=== PATIENT | female | born 1950 | race Caucasian/White ===

== ENCOUNTER 2017-08-09 12:43 | Day surgery (SDC) | payer MEDICARE, OTHER ==
[~2017-08-09] VITALS: Ht 162.6 cm; Wt 68.0 kg
--- NOTE | 2017-08-09 15:04 | NUR ---
08/09/17 1504 Ilana Gil 1444 PT ARRIVED IN PACU SLEEPY WITH NO C/O'S. ABD SOFT. 1500 FLU VACCINE GIVEN IN R ARM.
--- NOTE | 2017-08-10 09:12 | OR ---
[facility] [address] [place], [place] [address] Signed DATE OF OPERATION: 08/09/2017 SURGEON: Miguel Angel Sotelo MD PREOPERATIVE DIAGNOSIS: Colon screening, prior colonoscopy normal. POSTOPERATIVE DIAGNOSES: 1. Sigmoid diverticulosis. 2. Hypertrophied anal papilla x1. PROCEDURE: Total colonoscopy to cecum. ANESTHESIA: Intravenous sedation; fentanyl 100 mcg, Versed 5 mg. INDICATION: A 67-year-old white woman, who is a patient of Dr. Arias. She has undergone colon screen in the past, which was said to be normal. She is symptom-free at this time. She is admitted to undergo colonoscopy and understand the risks of bleeding, infection, and perforation. FINDINGS: The prep was excellent. Complete colonoscopy was undertaken to the cecum without question. There were diverticula of the sigmoid, but no sign of polyps. There was hypertrophied anal papilla x1. DESCRIPTION OF PROCEDURE: The patient was brought to the endoscopy suite and placed in lateral decubitus position, given intravenous sedation to the point of slurred speech and nystagmus. Digital rectal examination was normal. A firm nodule in the anal canal was noted and later confirmed to be a hypertrophied anal papilla. An Olympus video colonoscope was passed in the rectum and manipulated throughout the colon ultimately intubating the cecum itself. The ileocecal valve and appendiceal orifice were normal. The scope was withdrawn from that point and examination undertaken throughout showed no sign of polyps, but did show diverticular change of the sigmoid and left colon. Retroflexed view of the rectum confirmed hypertrophied anal papilla. The scope was straightened, withdrawn, and removed. The patient was taken to recovery in good condition. Electronically Signed By: MIGUEL ANGEL SOTELO MD 08/10/17 0912 PATIENT NAME: TUCKER CABA OPERATIVE REPORT DATE OF : 52 PHYSICIAN: MIGUEL ANGEL SOTELO MD REPORT #: [id number] REPORT IS CONFIDENTIAL AND NOT TO BE RELEASED WITHOUT AUTHORIZATION [facility] [address] [facility] [place], [place] [address] Signed CONCLUSION DIAGNOSES: 1. Diverticular changes of sigmoid. 2. Hypertrophied anal papilla. PLAN: Recommend high-fiber diet. Repeat colonoscopy in 10 years sooner if clinically indicated. She will return to the ongoing care of Dr. Arias. MD SJ Duran/KAJALL /[id number] cc: Dr. Arias Electronically Signed By: MIGUEL ANGEL SOTELO MD 08/10/17 0912 PATIENT NAME: TUCKER CABA OPERATIVE REPORT DATE OF : 52 PHYSICIAN: MIGUEL ANGEL SOTELO MD REPORT #: [id number] REPORT IS CONFIDENTIAL AND NOT TO BE RELEASED WITHOUT AUTHORIZATION
== END 2017-08-09 15:26 | disposition home or self-care (01) ==
LOC: OPS 12:43 → DS 12:43 → OPS 15:26
PROVIDERS: Surgery
PROC: 0DJD8ZZ Inspection of Lower Intestinal Tract, Via Natural or Artificial Opening Endoscopic (ICD-10-PCS; principal; 2017-08-09 14:00)
DX: Z12.11 Encounter for screening for malignant neoplasm of colon (principal); K57.30 Diverticulosis of large intestine without perforation or abscess without bleeding; Z88.2 Allergy status to sulfonamides; Z98.890 Other specified postprocedural states; Z23 Encounter for immunization
CPT/HCPCS: G0121; 90662; 99153; G0008; G0500; J1100; J2250; J2405; J3010; J7120